=== PATIENT | male | born 2000 | race Caucasian/White ===

== ENCOUNTER 2023-10-07 19:14 | Emergency (ER) | payer OTHER ==
[2023-10-07 19:35] VITALS: BP 127/74; PULSE 70; RESP 20; TEMP 97.6; BMI 25.0
[2023-10-07] MEDS ORDERED: DEXAMETHASONE SOD PHOSPHATE 10 MG/1 ML VIAL ONE (21:25)
[2023-10-07] MEDS ORDERED: SULFAMETHOXAZOLE/TRIMETHOPRIM 800MG/160MG D.S. TABLET ONE (21:25)
[2023-10-07] MEDS ORDERED: hydrOXYzine PAMOATE 25 MG CAPSULE (FP) PO ONE (21:25)
[2023-10-07] MEDS: DEXAMETHASONE SOD PHOSPHATE 10 MG/1 ML VIAL IM ONE (21:32)
[2023-10-07] MEDS: hydrOXYzine PAMOATE 50 MG CAPSULE (FP) PO ONE (21:32)
[2023-10-07] MEDS: SULFAMETHOXAZOLE/TRIMETHOPRIM 800MG/160MG D.S. TABLET PO ONE (21:32)
== END 2023-10-07 22:04 | disposition home or self-care (01) ==
LOC: JERFT 19:14
PROC: 3E023GC Introduction of Other Therapeutic Substance into Muscle, Percutaneous Approach (ICD-10-PCS; principal; 2023-10-07)
DX: L30.9 Dermatitis, unspecified (principal); R21 Rash and other nonspecific skin eruption; L29.9 Pruritus, unspecified
CPT/HCPCS: 99284-25; J1100

== ENCOUNTER 2023-11-04 00:19 | Emergency (ER) | payer OTHER ==
[2023-11-04 00:28] VITALS: BP 134/70; PULSE 78; RESP 16; TEMP 97.5; BMI 24.3
[2023-11-04] MEDS ORDERED: DEXAMETHASONE SOD PHOSPHATE 10 MG/1 ML VIAL ONE (00:37)
[2023-11-04] MEDS ORDERED: diazePAM 5 MG TABLET ONE (00:37)
[2023-11-04] MEDS: diazePAM 5 MG TABLET PO ONE (00:45)
[2023-11-04] MEDS: DEXAMETHASONE SOD PHOSPHATE 10 MG/1 ML VIAL IM ONE (00:45)
== END 2023-11-04 00:57 | disposition home or self-care (01) ==
LOC: FER 00:19
PROC: 3E023GC Introduction of Other Therapeutic Substance into Muscle, Percutaneous Approach (ICD-10-PCS; principal; 2023-11-04)
DX: R21 Rash and other nonspecific skin eruption (principal)
CPT/HCPCS: 36415; 84439; 84443; 84479; 99284-25; J1100

== ENCOUNTER 2023-11-13 21:23 | Emergency (ER) | payer OTHER ==
[2023-11-13 21:38] VITALS: BP 134/64; PULSE 77; RESP 15; TEMP 97.9; BMI 24.3
[2023-11-13] MEDS ORDERED: predniSONE 20 MG TABLET (UD) ONE (21:48)
[2023-11-13] MEDS ORDERED: diazePAM 5 MG TABLET ONE (21:48)
[2023-11-13] MEDS: predniSONE 20 MG TABLET (UD) PO ONE (21:50)
[2023-11-13] MEDS: diazePAM 5 MG TABLET PO ONE (21:51)
== END 2023-11-13 21:59 | disposition home or self-care (01) ==
LOC: FER 21:23
DX: R21 Rash and other nonspecific skin eruption (principal)
CPT/HCPCS: 99283-25

== ENCOUNTER 2023-12-17 18:54 | Emergency (ER) | payer OTHER ==
[2023-12-17 19:10] VITALS: BP 126/78; PULSE 64; RESP 18; TEMP 97.8; BMI 25.0
[2023-12-17] MEDS ORDERED: DEXAMETHASONE SOD PHOSPHATE 10 MG/1 ML VIAL ONE (19:51)
[2023-12-17] MEDS: DEXAMETHASONE SOD PHOSPHATE 4 MG/1 ML VIAL IM ONE (19:55)
== END 2023-12-17 19:59 | disposition home or self-care (01) ==
LOC: FER 18:54
PROC: 3E023GC Introduction of Other Therapeutic Substance into Muscle, Percutaneous Approach (ICD-10-PCS; principal; 2023-12-17)
DX: R21 Rash and other nonspecific skin eruption (principal); L20.9 Atopic dermatitis, unspecified
CPT/HCPCS: 99284-25

== ENCOUNTER 2024-01-01 10:34 | Emergency (ER) | payer OTHER ==
[2024-01-01 10:59] VITALS: BP 112/69; PULSE 75; RESP 16; TEMP 97.9; BMI 24.3
[2024-01-01] MEDS ORDERED: DEXAMETHASONE SOD PHOSPHATE 10 MG/1 ML VIAL ONE (11:09)
[2024-01-01] MEDS: DEXAMETHASONE SOD PHOSPHATE 10 MG/1 ML VIAL IM ONE (11:13)
== END 2024-01-01 11:55 | disposition home or self-care (01) ==
LOC: FER 10:34
DX: L30.9 Dermatitis, unspecified (principal); L73.9 Follicular disorder, unspecified; R21 Rash and other nonspecific skin eruption
CPT/HCPCS: 99284-25; J1100

== ENCOUNTER 2024-01-16 17:43 | Emergency (ER) | payer OTHER ==
[2024-01-16 17:53] VITALS: BP 121/55; PULSE 77; RESP 18; TEMP 97.9; BMI 25.0
== END 2024-01-16 19:15 | disposition home or self-care (01) ==
LOC: FER 17:43
DX: L30.9 Dermatitis, unspecified (principal); R61 Generalized hyperhidrosis; L29.9 Pruritus, unspecified
CPT/HCPCS: 99283-25